=== PATIENT | female | born 1995 | race Asian ===

== ENCOUNTER 2019-06-12 20:38 | Emergency (ER) | payer OTHER ==
[~2019-06-12] VITALS: Ht 160 cm; Wt 46.3 kg
[2019-06-12 20:50] VITALS: BP 115/70
--- NOTE | 2019-06-12 20:52 | NUR ---
TO LOBBY A/W BED AMBULATORY
--- NOTE | 2019-06-12 21:01 | NUR ---
PT AMBULATED TO BED 6
--- NOTE | 2019-06-12 21:05 | NUR ---
24/F PRESENTS TO ED WITH FAMILY/FRIEND, C/O BL EAR PAIN, X1 MONTH. DENIES FEVER/CHILLS, N/V. PT AWAKE AND ALERT, SKIN NORMAL WARM AND DRY, RR EVEN AND UNLABORED. DENIES MED HX OR RX. OTC EAR DROPS WITHOUT RELIEF
[2019-06-12 21:47] VITALS: BP 108/69
--- NOTE | 2019-06-12 21:47 | NUR ---
Patient discharged with v/s stable. Written and verbal after care instructions given and explained. Patient alert, oriented and verbalized understanding of instructions. Ambulatory with steady gait. All questions addressed prior to discharge. ID band removed. Patient advised to follow up with PMD. Rx of DEBROX OTIC DROPS EARWAX REMOVAL KIT, OFLOXACIN DROPS given. Patient educated on indication of medication including possible reaction and side effects. Opportunity to ask questions provided and answered.
== END 2019-06-12 21:47 | disposition home or self-care (01) ==
LOC: MED 20:38
DX: H60.93 Unspecified otitis externa, bilateral (principal)
CPT/HCPCS: 99283

== ENCOUNTER 2019-08-25 18:35 | Emergency (ER) | payer OTHER ==
[~2019-08-25] VITALS: Ht 160 cm; Wt 45.4 kg
[2019-08-25 18:42] VITALS: BP 117/70
--- NOTE | 2019-08-25 19:20 | NUR ---
pt ambulated to bed 09.
--- NOTE | 2019-08-25 19:25 | NUR ---
24 Y/O F PRESENTS TO ER C/O HEADACHE SINCE LAST NIGHT. PT ALSO C/O PAIN ON BRIDGE OF NOSE. PAIN LEVEL 10/10, "PULLING HAIR SENSATION." DENIES DIZZYNESS OR BLURRY VISION. DENIES N/V/D. NKA. NO MED HX. SAFETY MEASURES IN PLACE. WAITING FOR ERMD TO EVALUATE PT.
--- NOTE | 2019-08-25 19:55 | NUR ---
PT AMBULATED TO RESTROOM FOR URINE SAMPLE
[2019-08-25] MEDS ORDERED: diphenhydrAMINE 50 MG/ML VIAL IVP ONE (20:10)
[2019-08-25] MEDS ORDERED: NACL 0.9% 1,000 ML IV ONE (20:10)
[2019-08-25] MEDS ORDERED: METOCLOPRAMIDE 10 MG/2 ML INJ VIAL IVP ONE (20:10)
[2019-08-25] MEDS ORDERED: KETOROLAC 30 MG/ML VIAL IVP ONE (20:10)
[2019-08-25 21:22] VITALS: BP 111/71
--- NOTE | 2019-08-25 21:23 | NUR ---
Patient discharged with v/s stable. Written and verbal after care instructions given and explained. Pt encouraged to drink plenty of fluids, rest, and dim lights. Patient alert, oriented and verbalized understanding of instructions. Ambulatory with steady gait. All questions addressed prior to discharge. ID band removed. Patient advised to follow up with PMD. Rx of ACETAMINOPHEN 500MG WAS given. Patient educated on indication of medication including possible reaction and side effects. Opportunity to ask questions provided and answered.
== END 2019-08-25 21:22 | disposition home or self-care (01) ==
LOC: MED 18:35
DX: R51 Headache (principal)
CPT/HCPCS: 81002; 81025; 96374; 96375; 99283; J1200; J1885; J2765; J7030

== ENCOUNTER 2020-01-10 22:03 | Emergency (ER) | payer OTHER ==
[~2020-01-10] VITALS: Ht 157.5 cm; Wt 44.9 kg
[2020-01-10 22:08] VITALS: BP 132/87
[2020-01-10] MEDS ORDERED: DICYCLOMINE HCL LIQUID 20 MG, ALUMINUM HYD/MAG/SIMETHICONE 30 ML, LIDOCAINE VISCOUS 2% ... PO ONE ×3 (22:55)
[2020-01-10] MEDS ORDERED: DICYCLOMINE HCL LIQUID 10 MG/5 ML UDC ONE ×2 (22:57)
[2020-01-10] MEDS ORDERED: ALUMINUM HYD/MAG/SIMETHICONE 30 ML UDC ONE ×2 (22:57)
[2020-01-10] MEDS ORDERED: LIDOCAINE VISCOUS 2% 20 ML UDC ONE ×2 (22:57)
[2020-01-11 00:03] VITALS: BP 132/87
== END 2020-01-11 00:03 | disposition home or self-care (01) ==
LOC: MED 22:03
DX: R10.13 Epigastric pain (principal); R11.0 Nausea
CPT/HCPCS: 81002; 81025; 99282

== ENCOUNTER 2020-11-06 09:40 | Emergency (ER) | payer OTHER ==
[~2020-11-06] VITALS: Ht 160 cm; Wt 58.1 kg
[2020-11-06 09:55] VITALS: BP 132/65
--- NOTE | 2020-11-06 10:02 | NUR ---
Dr. Milligan is evaluating the patient in the overflow tent.
--- NOTE | 2020-11-06 10:19 | NUR ---
PTS MOTHER TESTED + FOR COVID, PT IS EXPERIENCING COUGH/FEVER. NO SOB. NO DISTRESS AT THIS TIME NO PMH NKDA
[2020-11-06 10:34] VITALS: BP 132/65
== END 2020-11-06 10:33 | disposition home or self-care (01) ==
LOC: MED 09:57
DX: M79.10 Myalgia, unspecified site (principal); R42 Dizziness and giddiness; R09.89 Other specified symptoms and signs involving the circulatory and respiratory systems; Z20.828 Contact with and (suspected) exposure to other viral communicable diseases
CPT/HCPCS: 71045; 99283